=== PATIENT | female | born 1990 | race Caucasian/White ===

== ENCOUNTER 2016-12-13 17:00 | Emergency (ER) | payer BC ==
[~2016-12-13] VITALS: Ht 154.9 cm; Wt 50.0 kg
[2016-12-13 17:07] VITALS: Ht 154.9 cm; Wt 50.0 kg
[2016-12-13] MEDS ORDERED: SOD CHLORIDE 0.9% 1,000 ML IV STA (17:41)
[2016-12-13] MEDS ORDERED: morphine 4 MG/ML VIAL IV STA (17:41)
[2016-12-13] MEDS ORDERED: CEFTRIAXONE 1 GM/50 ML (PMX) 50 ML IVPB STA (17:41)
[2016-12-13] MEDS ORDERED: ONDANSETRON 4 MG INJ IV STA (17:41)
[2016-12-13 18:03] LABS: ADD UMIC YES; URINE BILIRUBIN (Dip) NEGATIVE (NEGATIVE); URINE BLOOD (Dip) 1+ (NEGATIVE); URINE COLOR YELLOW (YELLOW); URINE GLUCOSE (Dip) NEGATIVE (NEGATIVE); URINE KETONES (Dip) TRACE (NEGATIVE); URINE LEUKOCYTE ESTERASE (Dip) 1+ (NEGATIVE); URINE NITRITE (Dip) POSITIVE (NEGATIVE); URINE TOTAL PROTEIN (Dip) 1+ (NEGATIVE); URINE UROBILINOGEN (Dip) 0.2 E.U./dL (0.1-1.0)
[2016-12-13 18:05] LABS: ADD SCAN DIFF NO
[2016-12-13 18:06] LABS: ABNORMAL IP MESSAGE 1; BASOPHILS % 0.2 % (0.0-2.0); HEMATOCRIT 38.2 % (37.0-47.0); HEMOGLOBIN 12.4 g/dl (12.0-16.0); LYMPHOCYTES % 10.6 % (15.0-51.0); MEAN CORPUSCULAR HEMOGLOBIN 30.2 pg (29.0-33.0); MEAN CORPUSCULAR HGB CONC 32.5 g/dl (32.0-37.0); MEAN CORPUSCULAR VOLUME 92.9 fl (82.0-101.0); MONOCYTE # 1.8 10^3/ul (0.3-0.9); MONOCYTES % 9.5 % (0.0-11.0); NEUTROPHIL # 15.1 10^3/ul (1.6-7.5); NEUTROPHILS % 79.2 % (39.0-77.0); PLATELET COUNT 359 10^3/UL (140-415); RED BLOOD COUNT 4.11 10^6/ul (4.20-5.40); RED CELL DISTRIBUTION WIDTH 11.8 % (11.5-14.5); WHITE BLOOD COUNT 19.1 10^3/ul (4.8-10.8)
[2016-12-13 18:21] LABS: BACTERIA,URINE MANY; SQUAMOUS EPITHELIAL CELL,UR FEW
[2016-12-13 18:33] LABS: ALBUMIN 5.2 g/dl (3.3-4.9); ALBUMIN/GLOBULIN RATIO 1.3; BILIRUBIN,INDIRECT 0.5 mg/dl (0-1.1); BILIRUBIN,TOTAL 0.5 mg/dl (0.2-1.3); CALCIUM 10.3 mg/dl (8.4-10.2); CREATININE 1.03 mg/dl (0.44-1.00); POTASSIUM 3.7 mmol/L (3.5-5.1); TOTAL PROTEIN 9.2 g/dl (6.1-8.1)
[2016-12-13] MEDS ORDERED: LEVO750T25 PO (19:13)
[2016-12-13] MEDS ORDERED: TRAM50TA2 PO (19:13)
[2016-12-13] MEDS ORDERED: ONDA4TAB14 PO (19:13)
--- NOTE | 2016-12-13 19:16 | ERD ---
ER Documentation Chief Complaint Date/Time DATE: 12/13/16 TIME: 19:15 Chief Complaint fever, chills, diaphoresis x 1 night HPI This is a 26-year-old female who is trying to self treat her urinary tract infection with cranberry juice and Pyridium for the past week. She has had some dysuria for the past 7 days. She has yesterday developed some headache and malaise and fatigue. Today she has same symptoms with a very elevated temperature 103. She has no neck pain or photophobia she is very well- appearing. No chest pain cough no abdominal pain vomiting diarrhea but does have a little bit of nausea. Denies any hematuria and does complain of left flank pain described as dull and constant ROS All systems reviewed and are negative except as per history of present illness. Medications Home Meds Active Scripts Tramadol HCl (Tramadol HCl) 50 Mg Tablet, 50 MG PO Q6, #20 TAB Prov:WOJCIECH DAVIES DO 12/13/16 Levofloxacin* (Levaquin*) 750 Mg Tablet, 750 MG PO DAILY for 10 Days, TAB Prov:WOJCIECH DAVIES DO 12/13/16 Ondansetron (Ondansetron Odt) 4 Mg Tab.rapdis, 4 MG PO Q6H Y for NAUSEA AND/OR VOMITING, #10 TAB Prov:WOJCIECH DAVIES DO 12/13/16 Allergies Allergies: Coded Allergies: No Known Allergy (Unverified , 12/13/16) PMhx/Soc Medical and Surgical Hx: pt denies Medical Hx, pt denies Surgical Hx Hx Alcohol Use: No Hx Substance Use: No Hx Tobacco Use: No Smoking Status: Never smoker FmHx Family History: No coronary disease Physical Exam Vitals Vital Signs Date Time Temp Pulse Resp B/P Pulse Ox O2 Delivery O2 Flow Rate FiO2 12/13/16 17:07 99.2 95 20 104/67 100 Physical Exam Const: Well-developed, well-nourished Head: Atraumatic, normocephalic Eyes: Normal Conjunctiva, PERRLA, EOMI, normal sclera, no nystagmus ENT: Normal External Ears, Nose and Mouth, moist mucus membranes. Neck: Full range of motion. No meningismus, no lymphadenopathy. Resp: Clear to auscultation bilaterally, no wheezing, rhonchi, rales Cardio: Regular rate and rhythm, no murmurs, S1 S2 present Abd: Soft, non tender x 4, non distended. Normal bowel sounds, no guarding or rebound, no pulsitile abdominal masses or bruits Skin: No petechiae or rashes, no ecchymosis , no maculopapular rash Back: Left CVA tenderness Ext: No cyanosis, or edema, FROM x 4, normal inspection, neurovascularly intact x 4 Neur: Awake and alert, STR 5/5 x 4, sensation intact x 4, no focal findings, cerebellum intact Psych: Normal Mood and Affect Result Diagram: 12/13/16 0217 12/13/16 1736 Results 24 hrs Laboratory Tests Test 12/13/16 02:17 12/13/16 17:36 White Blood Count 19.110^3/ul Red Blood Count 4.1110^6/ul Hemoglobin 12.4g/dl Hematocrit 38.2% Mean Corpuscular Volume 92.9fl Mean Corpuscular Hemoglobin 30.2pg Mean Corpuscular Hemoglobin Concent 32.5g/dl Red Cell Distribution Width 11.8% Platelet Count 80924^3/UL Mean Platelet Volume 10.0fl Neutrophils % 79.2% Lymphocytes % 10.6% Monocytes % 9.5% Eosinophils % 0.0% Basophils % 0.2% Nucleated Red Blood Cells % 0.0/100WBC Neutrophils # 15.110^3/ul Lymphocytes # 2.010^3/ul Monocytes # 1.810^3/ul Eosinophils # 0.010^3/ul Basophils # 0.010^3/ul Nucleated Red Blood Cells # 0.010^3/ul Urine Color YELLOW Urine Clarity CLOUDY Urine pH 8.0 Urine Specific [place] 1.015 Urine Ketones TRACE Urine Nitrite POSITIVE Urine Bilirubin NEGATIVE Urine Urobilinogen 0.2 E.U./dL Urine Leukocyte Esterase 1+ Urine Microscopic RBC 2-5/HPF Urine Microscopic WBC >200/HPF Urine Squamous Epithelial Cells FEW Urine Bacteria MANY Urine Hemoglobin 1+ Urine Glucose NEGATIVE% Urine Total Protein 1+ Sodium Level 141mmol/L Potassium Level 3.7mmol/L Chloride Level 105mmol/L Carbon Dioxide Level 25mmol/L Anion Gap 15 Blood Urea Nitrogen 7mg/dl Creatinine 1.03mg/dl Glucose Level 99mg/dl Calcium Level 10.3mg/dl Total Bilirubin 0.5mg/dl Direct Bilirubin 0.00mg/dl Indirect Bilirubin 0.5mg/dl Aspartate Amino Transf (AST/SGOT) 18IU/L Alanine Aminotransferase (ALT/SGPT) 21IU/L Alkaline Phosphatase 78IU/L Total Protein 9.2g/dl Albumin 5.2g/dl Globulin 4.00g/dl Albumin/Globulin Ratio 1.30 Current Medications Medications (Trade) Dose Ordered Sig/Moon Route PRN Reason Start Time Stop Time Status Last Admin Dose Admin Sodium Chloride (NS) 1,000 ml @ 1,000 mls/hr Q1H STAT IV 12/13/16 17:41 12/13/16 18:40 DC 12/13/16 17:57 Morphine Sulfate (morphine) 4 mg ONCE STAT IV 12/13/16 17:41 12/13/16 17:44 DC Ondansetron HCl 4 mg 4 mg ONCE STAT IV 12/13/16 17:41 12/13/16 17:44 DC Ceftriaxone Sodium (Rocephin) 50 ml @ 100 mls/hr ONCE STAT IVPB 12/13/16 17:41 12/13/16 18:10 DC 12/13/16 17:57 Procedures/MDM Patient has a urinary tract infection, elevated white blood count, left flank pain consistent with pyelonephritis Patient received IV fluids, urine culture blood culture, IV Rocephin. Patient is well-appearing and will be discharged home. 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
== END 2016-12-13 19:28 | disposition home or self-care (01) ==
LOC: E/R 17:00
DX: N12 Tubulo-interstitial nephritis, not specified as acute or chronic (principal); R11.0 Nausea
CPT/HCPCS: 36415; 80053; 81001; 85025; 87040; 87086; 96374; 99284; J0696; J7030